=== PATIENT | male | born 2000 | race Caucasian/White ===

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

== ENCOUNTER → 2022-08-07 10:55 | Outpatient (BNVA) | payer MEDICAID, SELFPAY | PROVIDERS: Family Provider Nurse Practitioner; PCP Nurse Practitioner Family; Visit Provider Nurse Practitioner Family | DX: J02.9 Acute pharyngitis, unspecified (principal); J03.00 Acute streptococcal tonsillitis, unspecified | CPT/HCPCS: 87880 ==

== ENCOUNTER → 2022-10-01 11:47 | Outpatient (BNVA) | payer MEDICAID, SELFPAY | PROVIDERS: Family Provider Nurse Practitioner; PCP Nurse Practitioner Family; Visit Provider Nurse Practitioner Family | DX: M54.9 Dorsalgia, unspecified (principal); K21.9 Gastro-esophageal reflux disease without esophagitis; H66.93 Otitis media, unspecified, bilateral | CPT/HCPCS: 81003 ==

== ENCOUNTER → 2024-09-12 09:37 | Outpatient (BNVA) | payer MEDICAID, SELFPAY | PROVIDERS: PCP Nurse Practitioner Family; Visit Provider Nurse Practitioner Family | DX: R10.9 Unspecified abdominal pain (principal); G89.29 Other chronic pain; K59.00 Constipation, unspecified; E66.9 Obesity, unspecified; R20.2 Paresthesia of skin | CPT/HCPCS: 80053; 80061; 82784; 83036; 83516; 84443; 85025 ==

== ENCOUNTER 2024-12-21 10:18 | Outpatient (CLI) | payer MEDICAID, SELFPAY ==
--- NOTE | 2024-12-21 10:26 | XR_ITS ---
WS: [id number] XR KUB [id number] REASON FOR EXAM: CONSTIPATION FINDINGS: Moderate volume stool retention in the right colon and proximal transverse colon. No significant retained stool volume identified in the left colon. Moderate volume of retained stool within the rectum. No small bowel distention. No mass or organomegaly. No urinary tract calculi. XR/XR KUB [id number] IMPRESSION: There is some stool retention in the right colon however overall there does not appear to be a significant volume of retained stool.
== END 2024-12-21 10:19 | disposition home or self-care (01) ==
LOC: RAD 10:23
PROVIDERS: PCP Nurse Practitioner Family; Visit Provider Nurse Practitioner
DX: K59.00 Constipation, unspecified (principal)
CPT/HCPCS: 74018